=== PATIENT | male | born 1965 | race Caucasian/White ===

== ENCOUNTER → 2019-12-04 14:36 | Outpatient (CLI) | payer OTHER, SELFPAY ==
--- NOTE | 2019-12-04 | DI.RAD.S_ITS ---
PROCEDURE: XR CHEST 2V INDICATIONS: XR CHEST ONGOING COUGH TECHNIQUE: 2 views of the chest were acquired. COMPARISON: [facility], , CHEST 1 VIEW, 06/08/2014, 14:06. FINDINGS: Surgical changes and devices: None. Lungs and pleura: Lungs are clear. No pleural effusions or pneumothorax. Mediastinum: Mediastinal contours are normal. Heart size is normal. Bones and chest wall: No suspicious bony abnormalities. Soft tissues appear unremarkable. IMPRESSION: No acute cardiopulmonary disease. Dictated by: Shirlene Johns M.D. on 12/04/2019 at 14:56 Approved by: Shirlene Johns M.D. on 12/04/2019 at 14:57
== END ==
PROVIDERS: PCP Student in an Organized Health Care Education/Training Program; Visit Provider Student in an Organized Health Care Education/Training Program
DX: R05 Cough (principal)
CPT/HCPCS: 71046

== ENCOUNTER → 2020-05-27 14:57 | Outpatient (CLI) | payer OTHER, SELFPAY ==
--- NOTE | 2020-05-27 15:00 | DI.RAD.S_ITS ---
PROCEDURE: XR HAND LT MIN 3V INDICATIONS: LEFT HAND PAIN TECHNIQUE: 3 views of the hand(s) acquired. COMPARISON: None. FINDINGS: Bones: No fractures or dislocations. Carpal bones are normally aligned. No suspicious bony lesions. Soft tissues: Extensive vascular atherosclerotic calcification. IMPRESSION: No fracture. No acute osseous lesion. If symptoms and/or clinical suspicion for pathology persists, further assessment with repeat radiographs (7-10 days) or advanced imaging (e.g. CT, MRI or bone scan) may be helpful. Dictated by: Gloria Jurado MD, PhD on 05/27/2020 at 16:29 Approved by: Gloria Jurado MD, PhD on 05/27/2020 at 16:30
== END ==
PROVIDERS: PCP Student in an Organized Health Care Education/Training Program; Referring Provider Student in an Organized Health Care Education/Training Program; Visit Provider Student in an Organized Health Care Education/Training Program
DX: M79.642 Pain in left hand (principal)
CPT/HCPCS: 73130

== ENCOUNTER 2021-08-05 13:16 | Emergency (ER) | payer OTHER, SELFPAY ==
[2021-08-05 13:21] VITALS: BP 154/86; PULSE 69; RESP 16; TEMP 36.2; O2SAT 98; BMI 32.5
--- NOTE | 2021-08-05 13:27 | DI.RAD.S_ITS ---
PROCEDURE: XR FINGER LT MIN 2V INDICATIONS: Cut thumb on router TECHNIQUE: AP hand, 2 views of the 1st finger(s) acquired. COMPARISON: None. FINDINGS: Bones: No fractures or dislocations. No suspicious bony lesions. Soft tissues: No suspicious soft tissue calcifications. Vascular calcifications along radial aspect of left wrist are seen. IMPRESSION: No gross acute 1st finger fracture or dislocation is seen. No radiopaque foreign body is seen. Dictated by: Andrés Valencia M.D. on 08/05/2021 at 13:38 Approved by: Andrés Valencia M.D. on 08/05/2021 at 13:39
--- NOTE | 2021-08-05 13:35 | ED.WOUNDLAC ---
HPI - Wound/Laceration <Clement Ray PA-C - Last Filed: 08/05/21 19:27> General Chief Complaint: Wound/Laceration Stated Complaint: Laceration, Left Thumb Time Seen by Provider: 08/05/21 13:35 Source: patient Mode of arrival: Ambulatory History of Present Illness HPI narrative: Hosea presents today with chief complaint of laceration to his left hand that he sustained earlier today. Reports that he was using a a handheld router and the router caught on the plastic that he was cutting. It twisted and rotated onto his hand. He bandaged it up and came directly here. Last tetanus was 5 years ago. He is right-hand dominant he denies any decreased range of motion, numbness or tingling of the thumb, or any other acute concerns or complaints. Related Data Home Medications Medication Instructions Recorded Confirmed Resmed Airsense 10 CPAP #1 ea 03/31/19 03/31/19 Allergies Allergy/AdvReac Type Severity Reaction Status Date / Time No Known Drug Allergies Allergy Unverified 10/02/18 08:45 Review of Systems <Clement Ray PA-C - Last Filed: 08/05/21 19:27> Review of Systems Narrative: As per HPI Patient History <Clement Ray PA-C - Last Filed: 08/05/21 19:27> Medical History (Updated 08/05/21 @ 15:10 by Clement Ray PA-C) Diabetes Hyperlipidemia Hypertension Obstructive sleep apnea of adult (~2005) Social History marital status: household members: spouse lives independently: Yes caregiver/support person: No occupational status: employed Smoking Status: Unknown if ever smoked alcohol intake: current substance use type: does not use caffeine: No Smoking Status: Unknown if ever smoked alcohol intake frequency: 0-2 drinks per day Substance Use Type: does not use Exam <Clement Ray PA-C - Last Filed: 08/05/21 19:27> Narrative Exam Narrative: Exam Narrative: Const General: cooperative, healthy appearing, comfortable, no acute distress, well developed and well groomed Nutritional Appearance: average body habitus Orientation: alert and oriented x3 HENMT Head: normal to inspection and atraumatic Ears: hearing grossly normal bilaterally Nose: external nose normal and nares normal Face and sinus: normal facial exam Neck Neck: normal visual inspection and supple Resp Effort & Inspection: normal respiratory effort, able to speak in complete sentences, no audible wheezes, not labored, no nasal flaring and no respiratory distress Neuro General: alert, oriented x3, gait normal, tone normal and moves all extremities Cognition: normal cognition Speech: speech normal Gait: normal gait Extremities: Upper extremities exposed. Irregular shaped laceration to the dorsal aspect of the base of his left thumb. He has full sensation of the distal thumb and has full range of motion with flexion and extension. No other obvious injuries noted. No bony tenderness. Capillary refill is normal. Psych Appearance: grossly normal and well kempt Mental Status: mental status grossly normal Speech and Movement: speech and movement normal Mood: congruent mood Affect: normal affect Initial Vital Signs Initial Vital Signs: Vital Signs Temperature 97.1 F L 08/05/21 13:21 Pulse Rate 69 08/05/21 13:21 Respiratory Rate 16 08/05/21 13:21 Blood Pressure 154/86 H 08/05/21 13:21 Pulse Oximetry 98 08/05/21 13:21 <Irais Arshad DO - Last Filed: 08/07/21 15:36> Initial Vital Signs Initial Vital Signs: Vital Signs Temperature 97.1 F L 08/05/21 13:21 Pulse Rate 69 08/05/21 13:21 Respiratory Rate 16 08/05/21 13:21 Blood Pressure 154/86 H 08/05/21 13:21 Pulse Oximetry 98 08/05/21 13:21 Procedures <Clement Ray PA-C - Last Filed: 08/05/21 19:27> Laceration Repair Laceration 1: Site: hand Side (If applicable): left Size (cm): 4 Description: irregular and clean Depth: simple, single layer Local Anesthetic: lidocaine 1% Amount of anesthesia used (mL): 3 Skin layer closed with: nylon Size (cm): 4-0 Number of sutures: 2 Technique: simple, interrupted Course <Clement Ray PA-C - Last Filed: 08/05/21 19:27> Orders Ordered: Discontinued Medications Bacitracin (Bacitracin Oint 0.9 Gm Pckt) 1 applic TOP NOW ONE Stop: 08/05/21 14:51 Last Admin: 08/05/21 14:55 Dose: 1 applic Documented by: RAMIROI Vital Signs Vital signs: Vital Signs - 8 hr 08/05/21 13:21 08/05/21 14:56 Temperature 97.1 F L Pulse Rate 69 66 Respiratory Rate 16 16 Blood Pressure 154/86 H 135/64 Pulse Oximetry 98 97 <Irais Arshad DO - Last Filed: 08/07/21 15:36> Orders Ordered: Discontinued Medications Bacitracin (Bacitracin Oint 0.9 Gm Pckt) 1 applic TOP NOW ONE Stop: 08/05/21 14:51 Last Admin: 08/05/21 14:55 Dose: 1 applic Documented by: RLLESLI Vital Signs Vital signs: Vital Signs - 8 hr 08/05/21 13:21 08/05/21 14:56 Temperature 97.1 F L Pulse Rate 69 66 Respiratory Rate 16 16 Blood Pressure 154/86 H 135/64 Pulse Oximetry 98 97 MDM - Wound/Laceration <Clement Ray PA-C - Last Filed: 08/05/21 19:27> MDM Narrative Medical decision making narrative: Patient has full range of motion of his thumb and is neurovascularly intact. X-ray is reassuring for no bony abnormalities. No evidence of tendon injury or nerve damage. He is up-to-date on his tetanus. He is a diabetic but laceration is very clean. I think that topical antibiotics are appropriate at this time and prophylactic oral antibiotics are unnecessary. Signs of infection were extensively discussed. Discharge Plan Departure Patient Disposition: Home Clinical Impression: Laceration Instructions: DI for Laceration Repair, DI for Wound Infection Activity Restrictions/Additional Instructions: It was very nice to meet you this afternoon. 2 sutures were placed in your hand as well as the Steri-Strips. Please monitor for signs of infection which include increased redness, swelling, pain, fever. If you experience any of these please return immediately for re-evaluation. Otherwise, recommend following up with your PCP in 7 days for suture removal. Thank you Clement Ray PA-C Prescriptions: No Action (DME) Resmed Airsense 10 CPAP Qty: 1 RF: 0 Referrals: Nikole Bhatt MD [Primary Care Provider] - <Irais Arshad DO - Last Filed: 08/07/21 15:36> Cosign ED Attending Cosignature Attestation: I was immediately available in the department for consultation. Documentation has been reviewed.
[2021-08-05] MEDS: LIDO 1%/SOD BICARB 8.4% (10ML) 10 ML SYRINGE INJ (13:51)
[2021-08-05] MEDS: BACITRACIN OINT 0.9 GM PCKT 1 APPLIC TOP (14:55)
[2021-08-05 14:56] VITALS: BP 135/64; PULSE 66; RESP 16; O2SAT 97
== END 2021-08-05 15:14 | disposition home or self-care (01) ==
PROVIDERS: Emergency Provider Physician Assistant; PCP Student in an Organized Health Care Education/Training Program
DX: S61.412A Laceration without foreign body of left hand, initial encounter (principal); W31.89XA Contact with other specified machinery, initial encounter
CPT/HCPCS: 12002; 73140; 99283

== ENCOUNTER → 2021-11-20 14:02 | Outpatient (CLI) | payer OTHER, SELFPAY ==
[2021-11-20 14:46] LABS: COVID19 -Nasal RAPID Negative (Negative)
== END ==
PROVIDERS: PCP Student in an Organized Health Care Education/Training Program; Referring Provider Physician Assistant; Visit Provider Physician Assistant
DX: Z20.822 Contact with and (suspected) exposure to COVID-19 (principal)
CPT/HCPCS: 87635

== ENCOUNTER → 2022-01-09 13:42 | Outpatient (CLI) | payer OTHER, SELFPAY ==
[2022-01-09 15:50] LABS: COVID19 -Nasal RAPID Negative (Negative)
== END ==
PROVIDERS: PCP Student in an Organized Health Care Education/Training Program; Visit Provider Family Medicine Sleep Medicine
DX: Z20.822 Contact with and (suspected) exposure to COVID-19 (principal)
CPT/HCPCS: 87635; C9803

== ENCOUNTER 2022-01-10 06:30 | Day surgery (SDC) | payer OTHER, SELFPAY ==
[2022-01-10 06:52] VITALS: BP 142/65; PULSE 51; RESP 16; TEMP 36.4; O2SAT 98; BMI 31.6
--- NOTE | 2022-01-10 07:33 | SUR.PREOP ---
Dr Aguilar here, made aware of drops not ready, obtained drops from his office and placed his own in pt's L eye.
--- NOTE | 2022-01-10 07:46 | PM.PREOP ---
Pre-operative Note Interval Note History & Physical reviewed/Exam performed by Physician: Yes Changes to H&P: No
--- NOTE | 2022-01-10 07:47 | P.OP_ITS ---
Operative Date/Time/Diagnoses Pre-op diagnosis: Nuclear Cataract Left eye Post-op diagnosis: same Procedure & Clinicians Same procedure as scheduled: Yes Surgeon: Cleveland Aguilar Anesthesia Type: MAC +/- and Sedation Operative Notes Procedure in detail: Patient brought to the operating suite. Tetracaine drops placed in the left eye. Marking instrument was used to sadi the vertical and horizontal meridians. Patient was prepped and draped in sterile manner. Wire lid speculum was placed in the eye. Marking instrument was used to sadi the 95 degree meridian. Betad ine drops were placed on the eye. This was irrigated. Lidocaine jelly was placed on the eye. A paracentesis port was created with a side-port blade. 0.1 mL 1% preservative free lidocaine was injected into the anterior chamber. The anterior chamber was deepened with viscoelastic. 2.6 mm keratome was used to create a temporal clear corneal incision. Cystotome and Utrata forceps were used to create continuous tear capsulorrhexis. Balanced salt solution was used to hydro dissect the nucleus. The phacoemulsification handpiece was inserted and the nucleus was removed using the stop and chop technique. The irrigation aspiration handpiece was inserted and the remaining cortex was removed. Anterior chamber was deepened with viscoelastic. An Munoz [id number] intraocular lens with a power of 20.5 was injected into the capsular bag. Irrigation aspiration handpiece was inserted and the remaining viscoelastic was removed. The lens was rotated to the 95 degree meridian. Incision was hydrated with balanced salt solution and found to be leak free with pressure with Weck-Ginny sponges. 0.1 mL Vigamox injected anterior chamber. 0.3 mL Kenalog 10 mg was injected subconjunctivally. Lid speculum was removed. The patient left the operating room in excellent condition. Complications: none Post-operative Condition: stable Disposition: same day surgery
[2022-01-10] MEDS: MOXIFLOXACIN INJ 4 MG/0.8 ML VIAL 0.5 MG EYE-OP (08:02)
[2022-01-10] MEDS: HYALURONATE SODIUM 30 MG-10 MG/ML SYRINGES 1 BOX INTRAOCULA (08:02)
[2022-01-10] MEDS: PHENYLEPHRINE/LIDOCAINE VIAL (OR) 0.2 ML EYE-OP (08:02)
[2022-01-10] MEDS: TRIAMCINOLONE 50 MG/5 ML VIAL INJ (08:03)
[2022-01-10] MEDS: LIDOCAINE 2% (GLYDO) 6 ML GEL TOP (08:03)
[2022-01-10] MEDS: TETRACAINE 0.5% OPHTH DROPS 4 ML 2 DROPS EYE-OP (08:03)
[2022-01-10] MEDS: BALANCED SALT IRRIG SOLN NO.2 500 ML, EPINEPHrine 1 MG IRR (08:04)
== END 2022-01-10 08:28 | disposition home or self-care (01) ==
PROVIDERS: PCP Student in an Organized Health Care Education/Training Program; Referring Provider Ophthalmology; Visit Provider Ophthalmology
PROC: (CPT 66984; principal; 2022-01-10 07:45)
DX: H25.12 Age-related nuclear cataract, left eye (principal); E11.9 Type 2 diabetes mellitus without complications; I10 Essential (primary) hypertension; Z79.4 Long term (current) use of insulin; G47.33 Obstructive sleep apnea (adult) (pediatric); Z96.41 Presence of insulin pump (external) (internal)
CPT/HCPCS: 66984; J0171; J2250; J3301; V2787

== ENCOUNTER → 2022-01-23 13:21 | Outpatient (CLI) | payer OTHER, SELFPAY ==
[2022-01-23 16:56] LABS: COVID19 -Nasal RAPID Negative (Negative)
== END ==
PROVIDERS: PCP Student in an Organized Health Care Education/Training Program; Visit Provider Family Medicine Sleep Medicine
DX: Z20.822 Contact with and (suspected) exposure to COVID-19 (principal)
CPT/HCPCS: 87635; C9803

== ENCOUNTER 2022-01-24 06:29 | Day surgery (SDC) | payer OTHER, SELFPAY ==
[2022-01-24] MEDS: PROPARACAINE 0.5% OPHTH SOL 2 DROPS EYE-OP (06:59)
[2022-01-24] MEDS: CATARACT EYE COMPOUND (10 DROPS/SYRINGE) 3 DROPS EYE-OP (07:04)
[2022-01-24 07:06] VITALS: BMI 31.0
[2022-01-24 07:18] VITALS: BP 130/61; PULSE 52; RESP 12; TEMP 35.9; O2SAT 97
[2022-01-24] MEDS: DEXTROSE 5%-0.45% NS 1,000 ML 21 ML IV (07:24)
--- NOTE | 2022-01-24 07:26 | SUR.PREOP ---
Pt with Insulin pump and monitor with CBG 79 @ 0648 and patient states starting to feel a little symptomatic IV to right hand started, IV D5 1/2 NS started, few drops given per Dr Calderon. Pt began to feel better and pump CBG up to 88 @ 0657 (hospital CBG 108) and 108 @ 0717 (machine 122)
--- NOTE | 2022-01-24 07:33 | PM.PREOP ---
Pre-operative Note Interval Note History & Physical reviewed/Exam performed by Physician: Yes Changes to H&P: No
--- NOTE | 2022-01-24 07:33 | PM.OP.1 ---
Operative Date/Time/Diagnoses Pre-op diagnosis: Nuclear cataract right eye Procedure & Clinicians Procedure: Cataract Surgery Same procedure as scheduled: Yes Surgeon: Cleveland Aguilar Anesthesia Type: MAC +/- and Sedation Operative Notes Procedure in detail: Patient brought to the operating suite. Tetracaine drops placed in the right eye. Marking instrument was used to sadi the vertical and horizontal meridians. Patient was prepped and draped in sterile manner. Wire lid speculum was placed in the eye. Marking instrument was used to sadi the 60 degree meridian. Betadine drops were placed on the eye. This was irrigated. Lidocaine jelly was placed on the eye. A paracentesis port was created with a side-port blade. 0.1 mL 1% preservative free lidocaine was injected into the anterior chamber. The anterior chamber was deepened with viscoelastic. 2.6 mm keratome was used to create a temporal clear corneal incision. Cystotome and Utrata forceps were used to create continuous tear capsulorrhexis. Balanced salt solution was used to hydro dissect the nucleus. The phacoemulsification handpiece was inserted and the nucleus was removed using the stop and chop technique. The irrigation aspiration handpiece was inserted and the remaining cortex was removed. Anterior chamber was deepened with viscoelastic. An Munoz [id number] intraocular lens with a power of 21.0 was injected into the capsular bag. Irrigation aspiration handpiece was inserted and the remaining viscoelastic was removed. The lens was rotated to the 60 degree meridian. Incision was hydrated with balanced salt solution and found to be leak free with pressure with Weck-Ginny sponges. 0.1 mL Vigamox injected anterior chamber. 0.3 mL Kenalog 10 mg was injected subconjunctivally. Lid speculum was removed. The patient left the operating room in excellent condition. Complications: none Post-operative Condition: stable Disposition: same day surgery
[2022-01-24] MEDS: PHENYLEPHRINE/LIDOCAINE VIAL (OR) 0.2 ML EYE-OP (07:50)
[2022-01-24] MEDS: HYALURONATE SODIUM 30 MG-10 MG/ML SYRINGES 1 BOX INTRAOCULA (07:50)
[2022-01-24] MEDS: TRIAMCINOLONE 50 MG/5 ML VIAL INJ (07:50)
[2022-01-24] MEDS: MOXIFLOXACIN INJ 4 MG/0.8 ML VIAL 0.5 MG EYE-OP (07:50)
[2022-01-24] MEDS: TETRACAINE 0.5% OPHTH DROPS 4 ML 2 DROPS EYE-OP (07:51)
[2022-01-24] MEDS: LIDOCAINE 2% (GLYDO) 6 ML GEL TOP (07:51)
[2022-01-24] MEDS: BALANCED SALT IRRIG SOLN NO.2 500 ML, EPINEPHrine 1 MG IRR (07:51)
[2022-01-24 08:04] VITALS: BP 116/60; PULSE 58; RESP 16; TEMP 36.2; O2SAT 95
== END 2022-01-24 08:29 | disposition home or self-care (01) ==
PROVIDERS: PCP Student in an Organized Health Care Education/Training Program; Referring Provider Ophthalmology; Visit Provider Ophthalmology
PROC: (CPT 66984; principal; 2022-01-24 07:45)
DX: H25.11 Age-related nuclear cataract, right eye (principal); E11.9 Type 2 diabetes mellitus without complications; R00.2 Palpitations; E78.00 Pure hypercholesterolemia, unspecified; I10 Essential (primary) hypertension; Z79.4 Long term (current) use of insulin; G47.33 Obstructive sleep apnea (adult) (pediatric)
CPT/HCPCS: 66984; J0171; J2250; J3301; V2787

== ENCOUNTER → 2022-06-15 18:03 | Outpatient (ROUT) | payer OTHER, SELFPAY ==
[2022-06-15 18:50] LABS: COVID19 -Nasal RAPID Negative (Negative)
== END ==
PROVIDERS: PCP Student in an Organized Health Care Education/Training Program; Visit Provider Family Medicine
DX: R05.9 Cough, unspecified (principal); Z20.822 Contact with and (suspected) exposure to COVID-19
CPT/HCPCS: 87635

== ENCOUNTER → 2022-06-15 18:50 | Outpatient (CLI) | payer OTHER, SELFPAY ==
--- NOTE | 2022-06-15 | DI.RAD.S_ITS ---
PROCEDURE: XR CHEST 2V INDICATIONS: COUGH TECHNIQUE: 2 views of the chest were acquired. COMPARISON: [facility], CR, XR CHEST 2V, 12/04/2019, 14:35. FINDINGS: Surgical changes and devices: None. Lungs and pleura: Lungs are clear. No pleural effusions or pneumothorax. Mediastinum: Mediastinal contours are normal. Heart size is normal. Bones and chest wall: No suspicious bony abnormalities. Soft tissues appear unremarkable. IMPRESSION: No acute process. Dictated by: Kenn Williamson M.D. on 06/16/2022 at 11:01 Approved by: Kenn Williamson M.D. on 06/16/2022 at 11:01
== END ==
PROVIDERS: PCP Student in an Organized Health Care Education/Training Program; Referring Provider Family Medicine; Visit Provider Family Medicine
DX: Z20.822 Contact with and (suspected) exposure to COVID-19; R05.9 Cough, unspecified
CPT/HCPCS: 71046; 87635

== ENCOUNTER → 2022-11-27 11:46 | Outpatient (CLI) | payer OTHER, SELFPAY ==
--- NOTE | 2022-11-27 | DI.RAD.S_ITS ---
PROCEDURE: XR CHEST 2V INDICATIONS: CHRONIC COUGH TECHNIQUE: 2 views of the chest were acquired. COMPARISON: [facility], CR, XR CHEST 2V, 06/15/2022, 19:28. FINDINGS: Surgical changes and devices: None. Lungs and pleura: Lungs are clear. No pleural effusions or pneumothorax. Mediastinum: Mediastinal contours are normal. Heart size is normal. Bones and chest wall: No suspicious bony abnormalities. Soft tissues appear unremarkable. IMPRESSION: No acute cardiopulmonary disease. Dictated by: Shirlene Johns M.D. on 11/27/2022 at 12:19 Approved by: Shirlene Johns M.D. on 11/27/2022 at 12:23
== END ==
PROVIDERS: PCP Family Medicine; Referring Provider Internal Medicine; Visit Provider Internal Medicine
DX: R05.3 Chronic cough (principal)
CPT/HCPCS: 71046

== ENCOUNTER → 2023-01-29 11:06 | Outpatient (CLI) | payer OTHER, SELFPAY ==
--- NOTE | 2023-01-29 | DI.CT.S_ITS ---
PROCEDURE: CT CHEST WO CON INDICATIONS: Chronic cough TECHNIQUE: Noncontrast 5 mm thick sections acquired from the pulmonary apices to the posterior costophrenic angles. 1 mm lung window, 5 mm thick coronal and sagittal and 7 mm axial MIP reformats were then acquired. For radiation dose reduction, the following was used: automated exposure control, adjustment of mA and/or kV according to patient size. COMPARISON: None. FINDINGS: Image quality: Excellent. Lungs and pleura: No acute air space opacities. No pleural effusions or pneumothorax. Central and peripheral airways are patent and normal in caliber. Mediastinum: Heart size is normal. No pericardial effusion. No mediastinal adenopathy by size criteria. Thoracic aorta and central pulmonary arteries are normal in size. Esophagus is normal in caliber. No hiatal hernia. Bones and chest wall: No suspicious bony lesions. No vertebral body compression fractures. No axillary or supraclavicular adenopathy by size criteria. Thyroid gland is unremarkable . Abdomen: Visualized upper abdominal solid organs and bowel loops appear normal in the absence of contrast. IMPRESSION: 1. No acute airspace opacities or pulmonary nodules. No findings to explain chronic cough. Dictated by: Tisha Walsh M.D. on 01/29/2023 at 14:11 Approved by: Tisha Walsh M.D. on 01/29/2023 at 14:18
== END ==
PROVIDERS: PCP Family Medicine; Referring Provider Family Medicine; Visit Provider Family Medicine
DX: R05.3 Chronic cough (principal)
CPT/HCPCS: 71250

== ENCOUNTER → 2023-01-29 11:08 | Outpatient (CLI) | payer OTHER, SELFPAY ==
--- NOTE | 2023-01-31 08:15 | PM.PFT.1 ---
Pulmonary Function Test Referral & Results Date Patient Seen: 01/29/23 Requesting provider: Carlitos Gonzales Results: The spirometry demonstrates an FVC of 3.82 L which is 83% of predicted. The FEV1 was measured at 2.40 L which is 69% of predicted. The FEV1/FVC ratio was 63 which is 82% of predicted. Following the administration of bronchodilator there was an 18% improvement in FEV1 and a 88% improvement in FEF 25-75%. Lung volumes show an SVC of 4.49 L which is 97% of predicted. The diffusing capacity was measured at 32.6 which is 105% of predicted. The maximum voluntary ventilation was reduced Interpretation: This study demonstrates mild obstructive lung disease with evidence improvement in particularly small airway flow after bronchodilator administration as above Lung volumes and diffusing capacity are normal
== END ==
PROVIDERS: PCP Family Medicine; Referring Provider Family Medicine; Visit Provider Family Medicine
DX: R05.2 Subacute cough (principal); J98.8 Other specified respiratory disorders; R05.3 Chronic cough
CPT/HCPCS: 71250; 94060; 94726; 94729

== ENCOUNTER → 2023-02-16 08:48 | Outpatient (CLI) | payer OTHER, SELFPAY ==
--- NOTE | 2023-02-16 | DI.CT.S_ITS ---
PROCEDURE: CT SINUS SCREEN WO CON INDICATIONS: Chronic pansinusitis TECHNIQUE: Noncontrast 3.0 mm axial images acquired from the frontal sinuses to the mid-sella, with coronal and sagittal reformats. For radiation dose reduction, the following was used: automated exposure control, adjustment of mA and/or kV according to patient size. COMPARISON: None. FINDINGS: Image quality: Excellent. Maxillary Sinuses: Moderate mucosal thickening can be seen within the maxillary sinuses, right worse than left. There is also a mucous retention cyst seen within the left maxillary sinus. The medial yadav of the maxillary sinuses are demineralized. Ethmoid Air Cells: [id number] mucosal thickening can be seen within the ethmoid air cells, primarily anteriorly. There is demineralization of the bony septations of the ethmoid air cells. Sphenoid Sinuses: The sphenoid sinuses demonstrate a mild degree of mucosal thickening anteriorly. Frontal Sinuses: The frontal sinuses demonstrate mucosal thickening inferomedially, which is moderate on the right and [id number] on the left. Ostiomeatal Complexes: The ostiomeatal complexes are patent, yet they are constitutionally narrowed, with bilateral Demetrio cells. The ostiomeatal complexes are further narrowed by soft tissue thickening and they are demineralized. Miscellaneous: Visualized intra-orbital contents are normal. No carey bullosa or paradoxical turbinate curvature. There is mild leftward nasal septal deviation. IMPRESSION: Multifocal paranasal sinus disease can be seen, which is worst within the maxillary sinuses. Areas of bony demineralization are seen, which are consistent with chronic sinusitis. The ostiomeatal complexes are patent, yet they are constitutionally narrowed, with bilateral Demetrio cells. Mild leftward nasal septal deviation. Dictated by: John Horton M.D. on 02/16/2023 at 10:36 Approved by: John Horton M.D. on 02/16/2023 at 10:42
== END ==
PROVIDERS: PCP Family Medicine; Referring Provider Otolaryngology; Visit Provider Otolaryngology
DX: J32.4 Chronic pansinusitis (principal); R49.0 Dysphonia; R05.3 Chronic cough; R09.82 Postnasal drip
CPT/HCPCS: 70486

== ENCOUNTER 2023-03-07 12:46 | Emergency (ER) | payer OTHER, SELFPAY ==
[2023-03-07 12:54] VITALS: BP 117/58; PULSE 46; RESP 24; TEMP 36.6; O2SAT 98; BMI 29.7
--- NOTE | 2023-03-07 13:01 | DI.RAD.S_ITS ---
PROCEDURE: XR FINGER LT MIN 2V INDICATIONS: cut off part of pointer finger TECHNIQUE: AP hand, 2 views of the 2nd finger(s) acquired. COMPARISON: [facility], , XR FINGER LT MIN 2V, 08/05/2021, 13:26. FINDINGS: Bones: Near amputation of the 2nd finger at the DIP joint. On the lateral view, there is truncated bone of the distal phalanx remaining. There is dislocation at the DIP joint. Soft tissues: No suspicious soft tissue calcifications. Extensive soft tissue laceration. IMPRESSION: Near amputation of the 2nd finger at the DIP joint. There is truncated distal phalanx bone remaining. It is dislocated at the DIP joint. Dictated by: Dex Romero M.D. on 03/07/2023 at 16:09 Approved by: Dex Romero M.D. on 03/07/2023 at 16:11
[2023-03-07 13:21] LABS: Add Manual Diff / Slide Review NO; Basophils Absolute Auto 100 /uL (0-100); Basophils Percent Auto 1.5 % (0-2); Eosinophils Absolute Auto 200 /uL (0-450); Eosinophils Percent Auto 1.9 % (2-4); Hematocrit 43.6 % (41-53); Hemoglobin 14.9 g/dL (13.5-17.5); Lymphocytes Absolute Auto 4200 /uL (1100-4500); Mean Corpuscular HGB Conc 34.2 % (30-36); Mean Corpuscular Hemoglobin 31.3 PG (26-34); Mean Corpuscular Volume 91.4 fL (80-100); Monocytes Absolute Auto 900 /uL (0-900); Monocytes Percent Auto 9.2 % (3-14); Neutrophils Absolute Auto 4100 /uL (1500-7000); Neutrophils Percent Auto 43.4 % (50-75); Platelet Count 221 X10^3/uL (150-400); Red Blood Cell Count 4.77 X10^6/uL (4.5-5.9); Red Cell Distribution Width 13.3 % (11.6-14.8); White Blood Cell Count 9.5 X10^3/uL (4.5-11.0)
[2023-03-07] MEDS: MORPHINE 4 MG/ML INJ IV (13:26)
[2023-03-07 13:28] LABS: INR 1.1 (0.9-1.3); Prothrombin Time 12.3 SECONDS (10.1-12.7)
[2023-03-07] MEDS: ONDANSETRON 4 MG/2 ML INJ IV (13:28)
[2023-03-07 13:30] LABS: PTT Partial Thromboplastin Tim 24 SECONDS (26-36)
[2023-03-07 13:36] LABS: Alanine Aminotransferase 44 IU/L (<50); Albumin 4.3 g/dL (3.5-5.0); Albumin Globulin Ratio 1.5 (1.0-2.8); Alkaline Phosphatase 99 U/L (38-126); Aspartate Aminotransferase 37 IU/L (17-59); Bilirubin Total 0.7 mg/dL (0.2-1.3); Blood Urea Nitrogen 20 mg/dL (9-20); Calcium 9.5 mg/dL (8.4-10.2); Carbon Dioxide 26 mmol/L (22-32); Chloride 103 mmol/L (98-107); Creatine Kinase 191 U/L (55-170); Estimated Glomerular Filt Rate > 60 mL/min (>60); Globulin 2.8 g/dL (1.7-4.1); Glucose 122 mg/dL (80-110); HEMOLYSIS < 15 (0-50); Lipase 41 U/L (23-300); Magnesium 1.9 mg/dL (1.6-2.3); Sodium 137 mmol/L (137-145); Total Protein 7.1 g/dL (6.3-8.2)
--- NOTE | 2023-03-07 13:38 | PC.NURSE ---
Pt amputated part of left index finger while using table saw. Spouse brought in tip of finger. Pt initially states I'm passing out. Diaphoretic/pale. Heart rate 40 at triage. States resting heart rate is usually 50. RT to triage for EKG. Pt denies chest pain, shortness of breath. Placed pt in hallway bed supine and reports started to feel better. IV placed and MD updated on pt status.
[2023-03-07 13:47] LABS: Troponin I < 0.012 ng/mL (0.01-0.034)
[2023-03-07 13:51] LABS: CKMB % Relative Index 1.7 % (1.5-5.0); Creatine Kinase MB 3.27 ng/mL (<2.37)
--- NOTE | 2023-03-07 13:54 | ED_ITS ---
HPI - Extremity Injury (Upper) General Chief Complaint: Extremity Injury, Upper Stated Complaint: bone gone is table saw Time Seen by Provider: 03/07/23 13:33 Source: patient Mode of arrival: Wheelchair History of Present Illness HPI narrative: Patient here with spouse. Has amputation to the index finger on the left. Tetanus is up-to-date. Patient was using a table saw at home. Cut the distal phalanx off of the index finger. Bleeding is controlled. Patient has pressure dressing to his index finger. Related Data Home Medications Medication Instructions Recorded Confirmed Resmed Airsense 10 CPAP #1 ea 03/31/19 04/18/22 atorvastatin 40 mg tablet 40 mg PO DAILY 01/10/22 03/09/23 fluoxetine 40 mg capsule 40 mg PO DAILY 01/10/22 03/09/23 insulin lispro 100 unit/mL sliding scale dose SUBCUT DAILY 01/10/22 04/18/22 subcutaneous solution (Humalog U-100 Insulin) metoprolol succinate 25 mg 25 mg PO DAILY 01/10/22 03/09/23 tablet,extended release 24 hr omeprazole 20 mg capsule,delayed 20 mg PO DAILY 01/10/22 03/09/23 release quinapril 20 mg tablet 20 mg PO DAILY 01/10/22 03/09/23 Previous Rx's Medication Instructions Recorded cephalexin 500 mg capsule 500 mg PO QID #20 caps 03/07/23 hydrocodone 5 mg-acetaminophen 325 1 tab PO Q6H PRN pain #20 tabs 03/07/23 mg tablet ondansetron 4 mg disintegrating 4 mg PO Q8H PRN nausea and 03/07/23 tablet vomiting #15 tabs cephalexin 500 mg capsule 500 mg PO QID #20 caps 03/09/23 hydrocodone 5 mg-acetaminophen 325 1 tab PO Q4H PRN pain #20 tabs 03/09/23 mg tablet Allergies Allergy/AdvReac Type Severity Reaction Status Date / Time No Known Drug Allergies Allergy Verified 03/09/23 10:20 Review of Systems Review of Systems Narrative: GENERAL: negative chills, fatigue, malaise, fever, sweats. HEENT: negative sinus pain, ear pain, sore throat RESPIRATORY: negative dyspnea, cough CARDIOVASCULAR: negative chest pain, palpitations GASTROINTESTINAL: negative nausea, vomiting, abdominal pain : negative dysuria, frequency, hematuria MUSCULOSKELETAL: Positive muscle or bony pain SKIN: negative rash, skin lesions NEUROLOGIC: negative weakness, numbness ROS Unobtainable: All systems reviewed & are unremarkable except as noted in HPI and below Patient History Medical History (Updated 03/22/23 @ 00:01 by ) Diabetes Hyperlipidemia Hypertension Obstructive sleep apnea of adult (~2005) Social History marital status: household members: spouse lives independently: Yes caregiver/support person: No occupational status: employed Smoking Status: Never smoker alcohol intake: current substance use type: does not use caffeine: No Smoking Status: Never smoker alcohol intake frequency: 0-2 drinks per day Substance Use Type: does not use Exam Narrative Exam Narrative: GENERAL: in no distress, not toxic not dyspneic HEAD: Normocephalic. EXTREMITIES: Examination of the left hand. There is complete amputation of the distal phalanx phone of the index finger. There is the pad of the finger remaining. Bleeding is controlled. No foreign body seen. NEURO: AOx4. SKIN: Warm and dry PSYCH: Not anxious, is cooperative Initial Vital Signs Initial Vital Signs: Vital Signs Temperature 97.9 F 03/07/23 12:54 Pulse Rate 46 L 03/07/23 12:54 Respiratory Rate 24 03/07/23 12:54 Blood Pressure 117/58 L 03/07/23 12:54 Pulse Oximetry 98 03/07/23 12:54 Oxygen Delivery Method Room Air 03/07/23 12:54 Procedures Laceration Repair Laceration 1: Time of procedure: 16:12 Site: other (Left index finger) Side (If applicable): left Size (cm): 3 Description: flap Depth: involves tendon Local Anesthetic: lidocaine 1% Amount of anesthesia used (mL): 2 Pre-repair: wound explored, irrigated extensively and cleansed with chlorhexadine Skin layer closed with: nylon Skin layer suture size: 3-0 Number of sutures: 4 Technique: simple, interrupted Course Orders Ordered: Discontinued Medications Bacitracin (Bacitracin Oint 0.9 Gm Pckt) 2 applic TOP NOW ONE Stop: 03/07/23 16:03 Last Admin: 03/07/23 16:22 Dose: 2 applic Documented By: [facility] Ampicillin Sodium/Sulbactam (Sodium 1.5 gm/ Sodium Chloride) 100 mls @ 200 mls/hr IV NOW ONE Stop: 03/07/23 13:56 Last Infusion: 03/07/23 16:21 Dose: 0 mls/hr Documented By: Admin: 03/07/23 14:54 Dose: 200 mls/hr Documented By: AQUILINO Morphine Sulfate (Morphine 4 Mg/Ml Inj) 4 mg IV NOW ONE Stop: 03/07/23 13:19 Last Admin: 03/07/23 13:26 Dose: 4 mg Documented By: AQUILINO Ondansetron HCl (Ondansetron 4 Mg/2 Ml Inj) 4 mg IV NOW ONE Stop: 03/07/23 13:19 Last Admin: 03/07/23 13:28 Dose: 4 mg Documented By: AQUILINO Vital Signs Vital signs: Vital Signs - 8 hr 03/07/23 12:54 Temperature 97.9 F Pulse Rate 46 L Respiratory Rate 24 Blood Pressure 117/58 L Pulse Oximetry 98 Oxygen Delivery Method Room Air MDM - Extremity Injury (Upper) Lab Data 03/07/23 13:13 03/07/23 13:13 Labs: Lab Results 03/07/23 03/07/23 03/07/23 Range/Units 13:13 13:13 13:13 WBC 9.5 (4.5-11.0) X10^3/uL RBC 4.77 (4.5-5.9) X10^6/uL Hgb 14.9 (13.5-17.5) g/dL Hct 43.6 (41-53) % MCV 91.4 (80-100) fL MCH 31.3 (26-34) PG MCHC 34.2 (30-36) % RDW 13.3 (11.6-14.8) % Plt Count 221 (150-400) X10^3/uL Neut % (Auto) 43.4 L (50-75) % Lymph % (Auto) 44.0 H (25-40) % [place] % (Auto) 9.2 (3-14) % Eos % (Auto) 1.9 L (2-4) % Baso % (Auto) 1.5 (0-2) % Neut # (Auto) 4100 (3342-9507) /uL Lymph # (Auto) 4200 (4302-0320) /uL [place] # (Auto) 900 (0-900) /uL Eos # (Auto) 200 (0-450) /uL Baso # (Auto) 100 (0-100) /uL PT 12.3 (10.1-12.7) SECONDS INR 1.1 (0.9-1.3) APTT 24 L (26-36) SECONDS Sodium 137 (137-145) mmol/L Potassium 4.0 (3.4-5.1) mmol/L Chloride 103 (98-107) mmol/L Carbon Dioxide 26 (22-32) mmol/L BUN 20 (9-20) mg/dL Creatinine 0.80 (0.66-1.25) mg/dL Estimated GFR > 60 (>60) mL/min BUN/Creatinine Ratio 25.0 H (6-22) Glucose 122 H (80-110) mg/dL Calcium 9.5 (8.4-10.2) mg/dL Magnesium 1.9 (1.6-2.3) mg/dL Total Bilirubin 0.7 (0.2-1.3) mg/dL AST 37 (17-59) IU/L ALT 44 (<50) IU/L Alkaline Phosphatase 99 (38-126) U/L Total Creatine Kinase 191 H (55-170) U/L CK-MB (CK-2) 3.27 H (<2.37) ng/mL CK-MB (CK-2) Rel Index 1.7 (1.5-5.0) % Troponin I < 0.012 (0.01-0.034) ng/mL Total Protein 7.1 (6.3-8.2) g/dL Albumin 4.3 (3.5-5.0) g/dL Globulin 2.8 (1.7-4.1) g/dL Albumin/Globulin Ratio 1.5 (1.0-2.8) Lipase 41 (23-300) U/L Imaging Data Extremity x-ray #1: Radiologist's Impression: Amputation of the distal phalanx of the index finger MDM Narrative Medical decision making narrative: After history and exam EKG CBC CMP troponin x-ray of finger ordered. Morphine ordered Zofran ordered. Unasyn ordered MDM CC: Finger injury Complicating co-morbidities: Diabetic history Data collected from: Patient and spouse Medical records reviewed: No previous visits here for this complaint Differential considered: Includes but not limited to finger amputation Exam documented above, pertinent findings include: Complete amputation of distal phalanx bone Labs reviewed white cell count 9.5 hemoglobin 14.9 INR 1.1 sodium 137 GFR greater than 60 troponin less than 0.012 Independently reviewed EKG as above sinus bradycardia rate [address] elevation or depression Imaging studies independently reviewed: Amputation of the distal phalanx of the index finger Consultations: Spoke with orthopedics Dr. Dominique, distal amputated portion of the finger does not get reattached. However recommends providing a flap to the amputated finger. She will see patient in 2 days to provide complete repair. Her office will call the office in the morning. Treatments: Morphine Zofran Unasyn Re-evaluations: 4 p.m.. Patient feeling much better after suturing flap of the finger. Return precautions reviewed with him and . They desire discharge h ome. Hemostasis obtained. Wound care instructions provided. Prescription for pain medication and antibiotics provided. They understand to call Dr. Dominique office in the morning to verify office time. Discussion: Appropriate for discharge home. Pain is controlled. Bleeding is controlled. Flap was provided on the distal portion of the finger. Definitive treatment will be on Sunday, in 2 days. I did contact Orthopedics on-call. Patient agrees with treatment plan. Pain is controlled. Return precautions reviewed with him. Regarding procedure. No snipping of the bone required. The re was a flap provided by the finger pad to use as a flap. Diagnosis: Distal finger amputation Discharge Plan Departure Patient Disposition: Home Clinical Impression: Amputation of finger of left hand Instructions: DI for Traumatic Finger or Hand Amputation Activity Restrictions/Additional Instructions: No driving or operating machinery today or when taking prescribed pain medication. Please call Dr. Dominique, orthopedics office tomorrow to confirm your office appointment with her this Sunday. The office is to call you tomorrow as well to confirm office time. Keep in dressing until office appointment on Sunday, this Sunday. Prescriptions: New hydrocodone-acetaminophen 5-325 mg tablet 1 tab PO Q6H PRN (Reason: pain) Qty: 20 0RF cephalexin 500 mg capsule 500 mg PO QID Qty: 20 0RF ondansetron 4 mg tablet,disintegrating 4 mg PO Q8H PRN (Reason: nausea and vomiting) Qty: 15 0RF No Action metoprolol succinate 25 mg tablet extended release 24 hr 25 mg PO DAILY fluoxetine 40 mg capsule 40 mg PO DAILY atorvastatin 40 mg tablet 40 mg PO DAILY omeprazole 20 mg capsule,delayed release(DR/EC) 20 mg PO DAILY quinapril 20 mg Tablet 20 mg PO DAILY insulin lispro [Humalog U-100 Insulin] 100 unit/mL solution SUBCUT DAILY Patient Comments: turned off, cont device Rx Instructions: only uses if insulin pump is not working. hydrocodone-acetaminophen 5-325 mg tablet 1 tab PO Q4H PRN (Reason: pain) Qty: 20 0RF Rx Instructions: postop exempt cephalexin 500 mg capsule 500 mg PO QID Qty: 20 0RF (DME) Resmed Airsense 10 CPAP Qty: 1 Dose Instruction: As directed Patient Comments: Pressure: 6-12 cmH2O DME: [facility] Rx Instructions: As directed Referrals: Leona Elkins MD [Physician] - Carlitos Gonzales MD [Primary Care Provider] - Stand Alone Forms: Patient Portal/API
[2023-03-07] MEDS: AMPICILLIN/SULBACTAM 1.5 GM 1.5 GM in SODIUM CHLORIDE 0.9% 100 ML IV (14:54)
[2023-03-07] MEDS: LIDOCAINE 1% 20 ML (16:22)
[2023-03-07] MEDS: BACITRACIN OINT 0.9 GM PCKT 2 APPLIC TOP (16:22)
[2023-03-07 16:24] VITALS: BP 143/78; PULSE 68; RESP 18; O2SAT 98
== END 2023-03-07 16:25 | disposition home or self-care (01) ==
PROVIDERS: Emergency Provider Emergency Medicine; PCP Family Medicine
DX: S68.121A Partial traumatic metacarpophalangeal amputation of left index finger, initial encounter (principal); W27.0XXA Contact with workbench tool, initial encounter; Z79.899 Other long term (current) drug therapy; R07.9 Chest pain, unspecified
CPT/HCPCS: 12042; 36415; 73140; 80053; 82550; 82553; 83690; 83735; 84484; 85025; 85610; 85730; 93005; 93010; 96365; 96375; 99284; J0295; J2270; J2405

== ENCOUNTER 2023-03-09 09:52 | Day surgery (SDC) | payer OTHER, SELFPAY ==
[2023-03-08 12:10] VITALS: BMI 32.5
[2023-03-09] VITALS (8 sets, daily range): BP systolic 106–137; BP diastolic 46–59; PULSE 48–55; RESP 12–19; TEMP 35.9–36.4; O2SAT 95–98; BMI 32.5
--- NOTE | 2023-03-09 05:58 | PM.HP.1 ---
History of Present Illness History of Present Illness Date Patient Seen: 03/09/23 Date of Onset of Symptoms: 03/07/23 Chief complaint: Left Finger Amputation Revision Narrative: 58 yo M sustained a left index finger amp at [facility] with table saw. seen in ER and received abx. tetnaus UTD. Pt is indicated for revision amputation for bone coverage and wound closure. NO other injuries. NO F/C/N/V Patient has an insulin pump and continuous glucose monitor. He is right-hand dominant. Feeling some phantom pains. Narcotic medication helped. On oral antibiotics. [facility] Medical History Diabetes Hyperlipidemia Hypertension Obstructive sleep apnea of adult (~2005) Social History marital status: household members: spouse lives independently: Yes caregiver/support person: No occupational status: employed Smoking Status: Never smoker alcohol intake: current substance use type: does not use caffeine: No Meds Home Medications and Allergies Home Medications Medication Instructions Recorded Confirmed Type Resmed Airsense 10 CPAP #1 ea 03/31/19 04/18/22 History atorvastatin 40 mg tablet 40 mg PO DAILY 01/10/22 03/09/23 History fluoxetine 40 mg capsule 40 mg PO DAILY 01/10/22 03/09/23 History insulin lispro 100 unit/mL sliding scale dose SUBCUT DAILY 01/10/22 04/18/22 History subcutaneous solution (Humalog U-100 Insulin) metoprolol succinate 25 mg 25 mg PO DAILY 01/10/22 03/09/23 History tablet,extended release 24 hr omeprazole 20 mg capsule,delayed 20 mg PO DAILY 01/10/22 03/09/23 History release quinapril 20 mg tablet 20 mg PO DAILY 01/10/22 03/09/23 History cephalexin 500 mg capsule 500 mg PO QID #20 caps 03/07/23 03/09/23 Rx hydrocodone 5 mg-acetaminophen 325 1 tab PO Q6H PRN pain #20 tabs 03/07/23 03/09/23 Rx mg tablet ondansetron 4 mg disintegrating 4 mg PO Q8H PRN nausea and 03/07/23 03/09/23 Rx tablet vomiting #15 tabs Allergies Allergy/AdvReac Type Severity Reaction Status Date / Time No Known Drug Allergies Allergy Verified 03/09/23 10:20 Review of Systems Review of Systems Narrative: +Diabetes ROS: Yes All systems reviewed with the patient and are negative except as otherwise documented Exam Narrative Exam Narrative: General: A&O x 3, NAD HEENT: NCAT RESP: LCTAB CV: RRR MSK: LUE with dressing in place on L index finger. shortened- DIPJ level amputation. a couple ER sutures place. Dressing in place clean small superficial excoriation dorsal distal phalanx left middle finger radial pulse palp no erythema Objective Imaging finger xray 2v: My impression: L index finger ap/lat with amp at level DIPJ- small bony remnant distal phalanx. Radiologist's impression: Near amputation of the 2nd finger at the DIP joint.? There is truncated distal phalanx bone remaining.? It is dislocated at the DIP joint. Assessment & Plan Assessment and plan (1) Amputation of finger of left hand: Status: Acute Plan 58 yo diabetic M with L index finger DIPJ level amputation after table saw injury. exposed bone and traumatic injury indicated for revision amputation for coverage. Risks of surgery are infection, persistant pain, sensitivity, neuroma, and cardiopulmonary complications associated with anesthesia (pneumonia, heart attack, stroke, ) Time Spent With Patient Time with patient: 30 to 49 minutes with 50% spent counseling/coordinating care Quality VTE Deep Vein Thrombosis/Pulmonary Embolism Present on Admission: No
[2023-03-09] MEDS: LACTATED RINGERS 1,000 ML 42 ML IV (10:54)
[2023-03-09] MEDS: CEFAZOLIN 2 GM/100 ML PREMIX 100 ML IV (11:37)
[2023-03-09] MEDS: EPINEPHrine 1 MG/ML 0.5 MG IM (11:43)
--- NOTE | 2023-03-09 12:00 | SUR.OPER ---
Supine on padded OR bed, head on pillow, arms secured on padded arm boards at <90 degrees abduction, legs uncrossed, safety belt at thigh, tape over blanket over lower legs.
--- NOTE | 2023-03-09 13:02 | PM.OP.1 ---
Operative Date/Time/Diagnoses Date of procedure: 03/09/23 Time of procedure: 13:02 Pre-op diagnosis: Partial amputation left index finger Diabetes Post-op diagnosis: same Procedure & Clinicians Procedure: Revision amputation fingertip left finger left index finger--CPT code 23906-I7 Same procedure as scheduled: Yes Indications: Patient is a 58-year-old [id number]-xrbneewy male had a incident while using a table saw resulting in amputation of his left index finger the level of the D IP joint. He was indicated for revision amputation. The patient is a diabetic. He has an insulin pump and continuous glucose monitor. This is typically well controlled. He is had no fevers chills nausea vomiting. Endorses throbbing pain and phantom pains at the finger tip. He was seen in [facility] room some loose sutures were bandage 2 was given IV antibiotics and a prescription for oral antibiotics and referred to Orthopedic surgery for definitive care. The risks and benefits of the procedure have been discussed with the patient and given the opportunity to ask questions. The risks of surgery include but are not limited to infection, phantom limb pain, persistence of pain, damage to nerves and blood vessels, stiffness, cardiopulmonary complications and . The patient expressed a thorough understanding of the risks and benefits of surgery and has elected to proceed. Consent was signed. Surgeon: Leona Elkins Click Yes if Unassisted: Yes Anesthesia Type: MAC +/- and Local Operative Notes Findings: Left index finger amputation with retained pulp flap. Distal phalanx bone is absent except for tiny sliver at the level of the D IP joint. This also involved the middle phalanx dorsally at the distal condyles Closure Type: primary Specimen(s): none sent Estimated Blood Loss (mL): 2 Blood products transfused: none Tourniquet time (min): 9 Procedure in detail: Patient is seen in the preoperative area the site of surgery was marked informed consent confirmed. The patient was brought back to the operating room by the anesthesia team positioned supine on operative table. Mac anesthesia was administered. The left upper extremity was prepped and draped in the standard sterile fashion. Formal time-out procedure was performed confirming the patient's side and site of surgery administration of appropriate preoperative antibiotic. The patient's perioperative glucose was monitored. Digital block was performed with 1% lidocaine. Next a finger glove was used as a finger tourniquet. The sutures from the ER were removed. This revealed a large volar flap. The remnant of distal phalanx was removed at the level of the D IP joint and the flexor tendon was cut and allowed to retract. There was dorsal involvement missing from the condyles of the middle phalanx. A rongeur was used to carefully contour the remaining volar parts of the condyles for a smooth tip while preserving length. This was checked on intraoperative fluoroscopy. Once this was complete the wound was again thoroughly irrigated. Next the neurovascular bundles were dissected out. The digital nerves were cut and allowed to retract the vessels were cauterized. Tourniquet was released hemostasis was achieved and the volar flap was fashioned to cover the finger tip. There was more dorsal skin loss on 1 side of the digit so this flap was fashioned to address this deficiency. The dog-ears were removed and the wound was closed with 3-0 Vicryl 4-0 Monocryl and 4-0 and 5 0 nylon suture. The digit pinked up well after tourniquet removal. A sterile dressing was placed with Xeroform gauze Alvina and Coban. Patient was awoken from anesthesia and taken to the recovery room in good condition. There no immediate complications from this procedure. All counts were correct. Complications: none Post-operative Condition: stable Disposition: PACU Plan for aftercare: The patient will follow-up in Orthopedic Clinic on 03/23/2023 at 10:00 a.m. for suture removal he will keep his dressing in place. Should this come off he will cover with a new dry dressing. He may flex and extend his finger as tolerated. He was given a small prescription for narcotic pain medication when she can wean to anti-inflammatories or plain Tylenol as tolerated. And he was given a prophylactic oral antibiotic prescription
== END 2023-03-09 13:54 | disposition home or self-care (01) ==
PROVIDERS: PCP Family Medicine; Referring Provider Orthopaedic Surgery Foot and Ankle Surgery; Visit Provider Orthopaedic Surgery Foot and Ankle Surgery
PROC: (CPT 26951; principal; 2023-03-09 11:15)
DX: S68.111A Complete traumatic metacarpophalangeal amputation of left index finger, initial encounter (principal); E11.9 Type 2 diabetes mellitus without complications; Z79.4 Long term (current) use of insulin; Z96.41 Presence of insulin pump (external) (internal); I10 Essential (primary) hypertension
CPT/HCPCS: 26951; 82962; J0171; J0690; J2250; J3010

== ENCOUNTER → 2023-05-14 11:50 | Outpatient (CLI) | payer OTHER, SELFPAY ==
--- NOTE | 2023-05-14 | DI.CT.S_ITS ---
PROCEDURE: CT SINUS SCREEN WO CON INDICATIONS: Postnasal drip Chronic cough TECHNIQUE: Noncontrast 3.0 mm axial images acquired from the frontal sinuses to the mid-sella, with coronal and sagittal reformats. For radiation dose reduction, the following was used: automated exposure control, adjustment of mA and/or kV according to patient size. COMPARISON: [facility], CT, CT SINUS SCREEN WO CON, 02/16/2023, 9:00. FINDINGS: Image quality: Excellent. Maxillary Sinuses: [id number] circumferential mucosal thickening of the maxillary sinuses. Mucous retention cyst on the left is unchanged from prior. Mild demineralization of the maxillary sinus yadav, left greater than right. Ethmoid Air Cells: No bony remodeling or destruction. Sinuses are clear. Sphenoid Sinuses: No bony remodeling or destruction. Sinuses are clear. Frontal Sinuses: No bony remodeling or destruction. Sinuses are clear. Ostiomeatal Complexes: Ostiomeatal complexes are patent. Small bilateral Demetrio cells. Miscellaneous: Visualized intra-orbital contents are normal. No carey bullosa or paradoxical turbinate curvature. Slight leftward nasal septal deviation. IMPRESSION: Resolved ethmoid, sphenoid and frontal sinusitis. Similar mucosal thickening of the maxillary sinuses, with a left-sided mucous retention cyst and slight bone remodeling. Small bilateral Demetrio cells. Dictated by: Jose Quiñones M.D. on 05/14/2023 at 12:39 Approved by: Jose Quiñones M.D. on 05/14/2023 at 12:43
== END ==
PROVIDERS: PCP Family Medicine; Referring Provider Otolaryngology; Visit Provider Otolaryngology
DX: R05.3 Chronic cough (principal); R09.82 Postnasal drip; J32.4 Chronic pansinusitis; J34.1 Cyst and mucocele of nose and nasal sinus
CPT/HCPCS: 70486

== ENCOUNTER → 2023-06-21 10:46 | Outpatient (CLI) | payer OTHER, SELFPAY ==
--- NOTE | 2023-06-21 10:48 | DI.RAD.S_ITS ---
PROCEDURE: XR FINGER LT MIN 2V INDICATIONS: Non-healing wound TECHNIQUE: AP hand, 2 views of the 2nd finger(s) acquired. COMPARISON: [facility], CR, XR FINGER LT MIN 2V, 03/07/2023, 13:09. FINDINGS: Bones: Interval amputation of the distal aspect of the 2nd finger, at the distal shaft of the middle phalanx. There is no plain film evidence of osteomyelitis. No soft tissue gas. Soft tissues: Extensive vascular calcifications are most commonly seen with longstanding diabetes. IMPRESSION: Interval amputation. No plain film evidence of osteomyelitis. Comment: If clinically continue to suspect osteomyelitis, consider MR hand with and without contrast. Dictated by: Dex Romero M.D. on 06/21/2023 at 11:20 Approved by: Dex Romero M.D. on 06/21/2023 at 11:50
== END ==
PROVIDERS: PCP Family Medicine; Referring Provider Surgery; Visit Provider Surgery
DX: T87.89 Other complications of amputation stump (principal)
CPT/HCPCS: 73140

== ENCOUNTER → 2023-06-21 10:57 | Outpatient (CLI) | payer OTHER, SELFPAY | PROVIDERS: PCP Family Medicine; Referring Provider Orthopaedic Surgery; Visit Provider Surgery | DX: T81.89XA Other complications of procedures, not elsewhere classified, initial encounter (principal); S61.201A Unspecified open wound of left index finger without damage to nail, initial encounter; E10.628 Type 1 diabetes mellitus with other skin complications; R60.0 Localized edema; L53.9 Erythematous condition, unspecified | CPT/HCPCS: 11042; 87070; 87075; 87077; 87147; 87186; 87205; 99204; 99213 ==

== ENCOUNTER → 2023-06-27 10:44 | Outpatient (CLI) | payer OTHER, SELFPAY | PROVIDERS: PCP Family Medicine; Referring Provider Internal Medicine; Visit Provider Surgery | DX: T81.31XA Disruption of external operation (surgical) wound, not elsewhere classified, initial encounter (principal); S61.201A Unspecified open wound of left index finger without damage to nail, initial encounter; E10.628 Type 1 diabetes mellitus with other skin complications | CPT/HCPCS: 11042 ==

== ENCOUNTER → 2023-07-02 10:59 | Outpatient (CLI) | payer OTHER, SELFPAY | PROVIDERS: PCP Family Medicine; Referring Provider Family Medicine; Visit Provider Surgery | DX: T81.89XA Other complications of procedures, not elsewhere classified, initial encounter (principal); S61.201A Unspecified open wound of left index finger without damage to nail, initial encounter; E10.628 Type 1 diabetes mellitus with other skin complications | CPT/HCPCS: 11042 ==

== ENCOUNTER → 2025-03-09 08:13 | Outpatient (CLI) | payer OTHER, SELFPAY ==
--- NOTE | 2025-03-09 17:43 | DI.NM.S_ITS ---
DATE OF SERVICE: 03/09/2025 EXERCISE TREADMILL STRESS TEST PROCEDURE: Exercise treadmill stress test without imaging. ORDERING PROVIDER: Dr. Carlitos Gonzales. INDICATIONS: The patient is a 60-year-old male with exertional dyspnea. FINDINGS: 1. The patient was able to exercise for 10 minutes 21 seconds on a standard Antoine protocol suggesting very good exercise capacity with an MOUSTAPHA of -21%, achieving 12.8 METS. 2. He had a normal heart rate and blood pressure response to exercise, achieving a maximum heart rate of 138 bpm (87% of his predicted maximum). Oxygen saturation levels were unable to be obtained during exercise but in the immediate recovery phase, oximetry was 95%. 3. He had no chest discomfort or anginal symptoms with exercise but stopped because of significant exertional dyspnea. He had mild nausea and dizziness early in recovery despite normal heart rate and blood pressure. 4. His resting ECG showed sinus rhythm with normal ST segments. With exercise, there is mild ST depression in the inferior leads that resolves promptly in the recovery phase and thus is nonspecific. There were no obvious arrhythmias. IMPRESSION: 1. Probable normal exercise treadmill stress test for ischemia although with subtle, nonspecific ST depression in the inferior leads. If there is a high degree of clinical concern for ischemic heart disease, an imaging stress test should be considered. 2. Very good exercise capacity without angina or arrhythmias although with significant exertional dyspnea despite normal oximetry in early recovery. Suresh Armstrong - HAI/go/PIETRO doc#: [id number]/job#: [id number] dd: 03/09/2025 17:11:00 dt: 03/09/2025 17:18:00 DICTATING MD/COPIES TO: Carlitos Alonzo MD; Carlitos Gonzales MD COPIES MNE: SHONDA;
== END ==
LOC: NUCM 08:13
PROVIDERS: PCP Family Medicine; Referring Provider Family Medicine; Visit Provider Family Medicine
DX: R06.09 Other forms of dyspnea (principal)
CPT/HCPCS: 93017

== ENCOUNTER → 2025-03-25 12:13 | Outpatient (CLI) | payer OTHER, SELFPAY ==
--- NOTE | 2025-03-25 12:15 | DI.RAD.S_ITS ---
PROCEDURE: XR SHOULDER RT MIN 2V INDICATIONS: AC joint pain, Pain in right shoulder TECHNIQUE: 3 views of the shoulder were acquired. COMPARISON: None. FINDINGS: Bones: There are no osseous abnormalities. Acromioclavicular and glenohumeral joints: Mild acromioclavicular degeneration appreciated. Glenohumeral joint is normal. Soft tissues: No soft tissue swelling, calcification or mass. IMPRESSION: Mild acromioclavicular degeneration Dictated by: Jacob Chappell M.D. on 03/26/2025 at 6:18 Approved by: Jacob Chappell M.D. on 03/26/2025 at 6:20
== END ==
LOC: RAD 12:14
PROVIDERS: PCP Family Medicine; Referring Provider Family Medicine; Visit Provider Family Medicine
DX: M19.011 Primary osteoarthritis, right shoulder (principal); M25.511 Pain in right shoulder
CPT/HCPCS: 73030

== ENCOUNTER → 2025-05-11 08:01 | Outpatient (CLI) | payer OTHER, SELFPAY ==
--- NOTE | 2025-05-11 08:03 | DI.ECHO.S_ITS ---
[facility] +---------+ [facility] : : [address] : : [place] : : [address] : : Phone: [phone] Echocardiogram Report + + :Name: REINALDO ELKINS Study Date: 05/11/2025 Height: 69 in : :Hospital ReadingLocation: Weight: 217 lb : : Gender: Male BSA: 2.1 m2 : :: 1965 Age: 60 yrs BP: 146/71 mmHg: :Reason For Study: Dyspnea : :Ordering Physician: EMILEE, : :OFELIA Performed By: Brandi Corbin : :Referring: OFELIA ROMERO : + + Interpretation Summary The ejection fraction is estimated to be 55-60%. There are no obvious focal wall motion abnormalities noted but poor endocardial definition reduces the sensitivity for the detection of such. The aortic valve is mildly calcified. The right ventricular systolic pressure is estimated to be at least 28 mmHg based on an estimated right atrial pressure of 3 mm Hg. Procedure: A two-dimensional transthoracic echocardiogram with color flow and Doppler was performed. There is no prior echocardiogram noted for this patient. The study quality was technically difficult. The heart rate ranged between 52-54 bpm during the study. Left Ventricle: The left ventricle is normal in size and wall thickness. The ejection fraction is estimated to be 55-60%. There are no obvious focal wall motion abnormalities noted but poor endocardial definition reduces the sensitivity for the detection of such. Diastolic parameters suggest probable normal left ventricular diastolic function and normal filling pressures. Right Ventricle: The right ventricle grossly appears normal in size with probable normal systolic function. Atria: The left atrium is mildly dilated. Right atrial size is normal. The interatrial septum grossly appears intact with no obvious evidence for an atrial septal defect. Mitral Valve: The mitral valve is grossly normal. There is no mitral regurgitation noted. Aortic Valve: The aortic valve opens well. The aortic valve is mildly calcified. No aortic regurgitation is present. Tricuspid Valve: The tricuspid valve is normal in structure and function. There is a trace or physiologic amount of tricuspid regurgitation. The right ventricular systolic pressure is estimated to be at least 28 mmHg based on an estimated right atrial pressure of 3 mm Hg. Pulmonic Valve: The pulmonic valve is not well visualized. Great Vessels: The aortic root is normal size. The ascending aorta is normal in size. The aortic arch is normal in size. The IVC is of normal diameter and collapses greater than 50% with a sniff. This suggests a low right atrial pressure of 3 mm Hg. Pericardium/ Pleura There is no pericardial effusion. There is no pleural effusion. MMode/2D Measurements & Calculations LVIDd: 5.6 cm LVOT diam: 2.1 cm LVIDs: 3.2 cm Ao root diam: 3.2 cm FS: 43.5 % asc Aorta Diam: 3.2 cm EPSS: 0.55 cm Ao Arch Diam (Prox Trans): 2.4 cm IVSd: 1.1 cm LVPWd: 0.98 cm LV hathaway. diameter/BSA (cm/m^2): 2.6 LV sys. diameter/BSA (cm/m^2): 1.5 LA A2 area: 26.6 cm2 RA long axis: 5.7 cm LA A4 area: 25.7 cm2 RA area: 19.8 cm2 LA length (vol): 5.7 cm RA vol: 58.5 ml LA vol: 101.2 ml RA : 27.4 ml/m2 LA vol index: 47.3 ml/m2 IVC diam: 1.5 cm RVD1 (basal): 4.0 cm TAPSE: 2.9 cm Doppler Measurements & Calculations Ao V2 max: 158.0 cm/sec LVOT Max Lico: 72.9 cm/sec Ao V2 mean: 115.6 cm/sec LV V1 max P.1 mmHg Ao max P.0 mmHg LV V1 VTI: 21.0 cm Ao mean P.8 mmHg VALENTIN(I,D): 1.7 cm2 Ao V2 VTI: 41.3 cm VALENTIN(V,D): 1.6 cm2 sev ratio: 0.51 VALENTIN indexed to BSA (cm^2/m^2): 0.82 MV E max lico: 88.2 cm/sec TR max lico: 247.9 cm/sec MV A max lico: 90.6 cm/sec TR max P.6 mmHg MV E/A: 0.97 PA V2 max: 78.3 cm/sec Med Peak E' Lico: 7.4 cm/sec PA V2 mean: 58.1 cm/sec E/E' med: 11.9 PA mean P.5 mmHg Lat Peak E' Lico: 8.9 cm/sec PA pr(Accel): 7.1 mmHg E/E' lat: 9.9 E/e' average: 10.9 MV dec time: 0.26 sec SV(LVOT): 72.2 ml Reading Physician:12:45 PM
== END ==
PROVIDERS: PCP Family Medicine; Referring Provider Internal Medicine Cardiovascular Disease; Visit Provider Internal Medicine Cardiovascular Disease
DX: R06.09 Other forms of dyspnea (principal)
CPT/HCPCS: 93306